=== PATIENT | female | born 1965 | race Caucasian/White ===

== ENCOUNTER → 2018-03-23 | Outpatient (CLI) | payer OTHER ==
[~2018-03-23] MED LIST: ACET500 PO; BETA.05TCA TP; CETI10 PO; CVS OMEGA-3 KR1 EACH PO; L-Lysine500 M1 PO; METO10 PO; Multiple Vitam1 EAC1 PO; OMEP10ER PO; ONDA8 PO; OXYACE5T PO; PANT40 PO; THYR60 PO; VITAMIN B COMPLEX PO; VITAMIN D22000 UNIT PO; ZOLP10 PO; ZOLP5 PO
== END | disposition home or self-care (01) ==
LOC: LAB SHORT 10:03 → PLD 10:03
DX: L82.1 Other seborrheic keratosis (principal)
CPT/HCPCS: 88305

== ENCOUNTER → 2020-01-03 | Outpatient (CLI) | payer OTHER ==
[~2020-01-03] MED LIST changes: +ACET325 PO; +ALPR.25 PO; +AMLO5 PO; +Hydrocodone-Ap1 EA23 PO; +OLAN10 PO; +Pantoprazole So40 MG PO
[2020-01-03 17:24] LABS: Free Thyroxine 1.04 ng/dL (0.70-1.60)
[2020-01-03 17:27] LABS: Thyroid Stimulating Hormone 2.65 uIU/mL (0.360-4.800)
== END | disposition home or self-care (01) ==
LOC: LAB SHORT 14:28 → LAB 14:28
PROVIDERS: Hospitalist
DX: E03.9 Hypothyroidism, unspecified (principal)
CPT/HCPCS: 84439; 84443

== ENCOUNTER 2020-03-26 07:58 | Day surgery (SDC) | payer OTHER ==
[~2020-03-26] VITALS: Ht 157.5 cm; Wt 77.5 kg
[2020-03-26] MEDS ORDERED: Bisoprolol Fumar5 MG PO (08:21)
[2020-03-26] MEDS ORDERED: AMLO5 PO (08:21)
--- NOTE | 2020-03-26 09:55 | NUR ---
CALL PLACED TO PHYSICIAN PER ORDER, TO VOICEMAIL.
--- NOTE | 2020-03-26 10:23 | NUR ---
"DAY SURGERY RN | DISCHARGE CALL PLACED TO PHYSICIANS OFFICE TO DISCHARGE PATIENT PER ORDERS. VOICEMAIL LEFT, CALLED OFFICE AND HEATHER COOPER STATED THAT DOCTOR OKAYED DISCHARGED IF VITALS STABLE. VITALS ARE STABLE SO THIS RN GAVE DISCHARGE INSTRUCTIONS TO PATIENT AND WALKED PATIENT TO FRONT ENTRANCE. NO ISSUES."
== END 2020-03-26 23:12 | disposition home or self-care (01) ==
LOC: ORD 07:58 → CT 07:58 → ORD 08:30 → CT 09:00 → ORD 23:12
DX: I42.0 Dilated cardiomyopathy (principal); E03.9 Hypothyroidism, unspecified; K21.9 Gastro-esophageal reflux disease without esophagitis; R00.0 Tachycardia, unspecified; Z85.72 Personal history of non-Hodgkin lymphomas; Z79.899 Other long term (current) drug therapy; Z88.0 Allergy status to penicillin
CPT/HCPCS: 75574; Q9967

== ENCOUNTER 2021-02-19 06:18 | Day surgery (SDC) | payer OTHER | END 2021-02-19 08:36 | disposition home or self-care (01) | LOC: ORSCSDS 06:18 | PROC: 01N54ZZ Release Median Nerve, Percutaneous Endoscopic Approach (ICD-10-PCS; principal; 2021-02-19) | DX: G56.01 Carpal tunnel syndrome, right upper limb (principal); I10 Essential (primary) hypertension; E66.01 Morbid (severe) obesity due to excess calories; Z68.36 Body mass index [BMI] 36.0-36.9, adult; K21.9 Gastro-esophageal reflux disease without esophagitis; Z79.899 Other long term (current) drug therapy ==

== ENCOUNTER 2021-02-26 06:04 | Day surgery (SDC) | payer OTHER ==
[~2021-02-26] VITALS: Ht 154.9 cm; Wt 85.1 kg
[~2021-02-26 06:04] MED LIST changes: +AMIT25; +AMLO5; +Bisoprolol Fumar5 MG; +Bisoprolol Fumar5 MG PO; +KEYTRUDA100 MG/41; +PRED5
--- NOTE | 2021-02-26 07:42 | NUR ---
02/26/21 0742 Migdalia Darden BEDSIDE INJECTION CONDUCTED IN PRE-OP 0728: DR SAPP TO ROOM, TIME OUT & SITE CHECK PERFORMED. 2MG VERSED IVP & 50MCG FENTANYL IVP ADMINISTERED BY DR. BARFIELD. 0730: INJECTION START 0737: INJECTION COMPLETE PULSE OX ON PT THROUGHOUT PROCEDURE, PT TOLERATED WELL. VSS.
--- NOTE | 2021-02-26 08:09 | NUR ---
02/26/21 0809 ROCCO ESPANA PROPROTHAL GIVEN IN OR/ MORE SLEEPY
== END 2021-02-26 08:30 | disposition home or self-care (01) ==
LOC: ORSCSDS 06:04
PROVIDERS: Orthopaedic Surgery
PROC: 01N54ZZ Release Median Nerve, Percutaneous Endoscopic Approach (ICD-10-PCS; principal; 2021-02-26 07:30)
DX: G56.02 Carpal tunnel syndrome, left upper limb (principal); I10 Essential (primary) hypertension; Z79.899 Other long term (current) drug therapy
CPT/HCPCS: J2250; J2704; J3010; J7120

== ENCOUNTER 2022-03-06 11:22 | Day surgery (SDC) | payer OTHER ==
[~2022-03-06] VITALS: Ht 157.5 cm; Wt 74.1 kg
[2022-03-06] MEDS ORDERED: VITAMIN D310 MC4 (11:50)
[2022-03-06] MEDS ORDERED: MERIBIN5 MG (11:51)
[2022-03-06] MEDS ORDERED: MYRBETRIQ25 MG (11:51)
[2022-03-06] MEDS ORDERED: VITAMIN B125000 MC1 (11:51)
== END 2022-03-06 13:25 | disposition home or self-care (01) ==
LOC: ORSCSDS 11:22
PROVIDERS: Internal Medicine Gastroenterology
PROC: 0D758ZZ Dilation of Esophagus, Via Natural or Artificial Opening Endoscopic (ICD-10-PCS; principal; 2022-03-06 13:15)
PROC: 0DB68ZX Excision of Stomach, Via Natural or Artificial Opening Endoscopic, Diagnostic (ICD-10-PCS; principal; 2022-03-06 13:15)
DX: R19.8 Other specified symptoms and signs involving the digestive system and abdomen (principal); K31.7 Polyp of stomach and duodenum; K21.9 Gastro-esophageal reflux disease without esophagitis; Z79.899 Other long term (current) drug therapy; I10 Essential (primary) hypertension; E03.9 Hypothyroidism, unspecified; R00.0 Tachycardia, unspecified
CPT/HCPCS: 88305; 88342; A9270; J2405; J2704; J7120

== ENCOUNTER → 2022-06-04 | Outpatient (CLI) | payer OTHER ==
[~2022-06-04] MED LIST changes: +MERIBIN5 MG; +MYRBETRIQ25 MG; +VITAMIN B125000 MC1; +VITAMIN D310 MC4
== END | disposition home or self-care (01) ==
LOC: LAB SHORT 19:16 → LAB 19:16
DX: N39.0 Urinary tract infection, site not specified (principal)
CPT/HCPCS: 87077; 87086; 87186

== ENCOUNTER → 2023-08-04 | Outpatient (CLI) | payer OTHER | LOC: LAB SHORT 07:34 → LAB 07:34 | DX: D23.5 Other benign neoplasm of skin of trunk (principal) | CPT/HCPCS: 88305; 88313 ==

== ENCOUNTER 2025-05-02 11:52 | Day surgery (SDC) | payer OTHER ==
[~2025-05-02] VITALS: Ht 154.9 cm; Wt 67.2 kg
[~2025-05-02 11:52] MED LIST changes: +Crestor40 MG PO; +DILT120 PO; +EPIPEN0.3 MG/0.3 IM; +FURO20 PO; +Glycopyrrolate 0.2 MG/ML 1MLVIAL ONE; +MOUNJARO10 MG/0.5 SQ; +Ondansetron HCl 2 MG / ML 2ML Vial ONE; +PREG25 PO; +ePHEDrine Sulfate 50 MG/ML 1ML Injection ONE
[2025-05-02] MEDS ORDERED: NEURIVA (12:11)
[2025-05-02] MEDS ORDERED: MULVITA (12:11)
[2025-05-02] MEDS ORDERED: Midazolam HCL 1 MG/ML 5MLVIAL ONE (13:13)
--- NOTE | 2025-05-02 14:20 | NUR ---
05/02/25 1420 Tyler Rivera PT'S B/P DROPPED TO 71/53 AT 1309 FOLLOWING ADMINISTRATION OF 40MG PROPOFOL. FLUIDS WERE OPEN WIDE AND DR. MARSHALL WAS NOTIFIED. 12.5MG IV EPHEDRINE WAS GIVEN, PER DR. MARSHALL'S ORDERS. PT BEGAN MOVING PROCEDURE STARTED AT 1315. 2MG IV VERSED WAS GIVEN AT 1315, PER DR. MARSHALL ORDERS.
[2025-05-02 14:27] VITALS: BP 118/74
== END 2025-05-02 14:15 | disposition home or self-care (01) ==
LOC: ORSCSDS 11:52
PROVIDERS: Internal Medicine Gastroenterology
PROC: 0DBP8ZX Excision of Rectum, Via Natural or Artificial Opening Endoscopic, Diagnostic (ICD-10-PCS; principal; 2025-05-02 13:15)
PROC: 0DBL8ZX Excision of Transverse Colon, Via Natural or Artificial Opening Endoscopic, Diagnostic (ICD-10-PCS; principal; 2025-05-02 13:15)
DX: R19.4 Change in bowel habit (principal); D12.3 Benign neoplasm of transverse colon; K62.1 Rectal polyp; R10.32 Left lower quadrant pain; Z85.72 Personal history of non-Hodgkin lymphomas; I10 Essential (primary) hypertension; E03.9 Hypothyroidism, unspecified; K21.9 Gastro-esophageal reflux disease without esophagitis; Z79.899 Other long term (current) drug therapy
CPT/HCPCS: 82947; 88305; J0461; J2003; J2250; J2405; J2704; J7120; Q9968